=== PATIENT | male | born 1980 | race Caucasian/White ===

== ENCOUNTER 2016-10-29 13:25 | Emergency (ER) | payer SELFPAY ==
[2016-10-29 13:31] VITALS: BP 151/92; PULSE 120; RESP 16; TEMP 98.1; O2SAT 96
--- NOTE | 2016-10-29 13:32 | EDPHY ---
H & P Time Seen by Provider: 10/29/16 13:27 HPI/ROS: Chief complaint. High on meth HPI. 36-year-old male here by EMS and is "high on meth". He is a long-time meth user and admits to doing methamphetamine this morning. He denies headache , visual symptoms, chest discomfort, trouble breathing, abdominal pain. He has not been injured there is no fall or trauma. He has no pain or complaints. He denies suicidal ideation or homicidal ideation. ROS Constitutional. no fever/chills, no weakness Eyes. no problems with vision ENT. no sore throat, no nasal drainage Cardiovascular. no chest pain Respiratory. no shortness of breath, no cough Abdominal. no abdominal pain, no nausea/vomiting, no diarrhea . no problems urinating MS. no calf pain/swelling, no neck/back pain, no joint pain Skin. no rash Lymph. no swollen glands Neuro. no headache, no dizziness, no difficulty walking or with speech Past Medical/Surgical History: Past medical history significant only for substance abuse Social History: Single, daily smoker, no alcohol Smoking Status: Current every day smoker Physical Exam: General Appearance: Alert well-developed male no distress vital signs show a heart rate of 120 blood pressure 151/92 Eyes: Pupils equal and round no pallor or injection. ENT, Mouth: Mucous membranes are moist. Respiratory: There are no retractions, lungs are clear to auscultation. Cardiovascular: Regular rate and rhythm. Gastrointestinal: Abdomen is soft and nontender, no masses, bowel sounds normal. Neurological: Awake and alert, sensory and motor exams grossly normal. Skin: Warm and dry, no rashes. Musculoskeletal: Neck is supple nontender. Extremities symmetrical, full range of motion. Psychiatric: Patient is oriented X 3, there is no agitation. Constitutional: Initial Vital Signs Temperature (C) 36.7 C 10/29/16 13:29 Heart Rate 120 H 10/29/16 13:29 Respiratory Rate 16 10/29/16 13:29 Blood Pressure 151/92 H 10/29/16 13:29 O2 Sat (%) 96 10/29/16 13:29 O2 Delivery Mode Room Air Allergies/Adverse Reactions: No Known Allergies Allergy (Unverified 10/29/16 13:29) Home Medications: Medication Instructions Recorded NK [No Known Home Meds] 03/26/17 Medical Decision Making Procedures: Ativan by mouth, monitor ED Course/Re-evaluation: Patient declines Ativan and EKG. He stable. He wants to leave. There appears to be no medical or psychological issue to keep him here. He is not suicidal or homicidal. He has no chest discomfort trouble breathing or abdominal pain. No evidence of CVA. He admits to doing meth this morning Differential Diagnosis: I considered suicide and homicide ideation. I considered acute coronary syndrome. - Data Points Medications Given: Discontinued Medications Lorazepam (Ativan) 1 mg PO EDNOW ONE Stop: 10/29/16 13:41 Last Admin: 10/29/16 13:47 Dose: Not Given Departure - Departure Disposition: Home, Routine, Self-Care Clinical Impression: Methamphetamine abuse Condition: Good Instructions: Methamphetamine Abuse (ED) Additional Instructions: Return to the emergency department for thoughts of harming herself or others, chest discomfort, shortness of breath, abdominal pain, fever Follow up with [facility] for further evaluation and treatment of methamphetamine use Referrals: Patient,NotPresent [Primary Care Provider] - As per Instructions [facility] [Outside] - As per Instructions
[2016-10-29] MEDS: LORazepam 1 MG TAB PO ONE (13:47)
== END 2016-10-29 13:57 | disposition home or self-care (01) ==
LOC: EDUNIT#
DX: F15.10 Other stimulant abuse, uncomplicated (principal); F17.200 Nicotine dependence, unspecified, uncomplicated

== ENCOUNTER 2017-03-06 22:42 | Emergency (ER) | payer SELFPAY ==
[2017-03-06 22:49] VITALS: RESP 16
[2017-03-06 23:33] LABS: % IMMATURE GRANULYOCYTES 0.1 % (0.0-1.1); ABSOLUTE IMMATURE GRANULOCYTES 0.01 10^3/uL (0.00-0.10); ADD DIFF? NO; ADD MORPH? NO; ADD SCAN? NO; ATYPICAL LYMPHOCYTE FLAG 10 (0-99); FRAGMENT RBC FLAG 0 (0-99); HEMATOCRIT 43.3 % (40.0-51.0); HEMOGLOBIN 14.5 g/dL (13.7-17.5); LEFT SHIFT FLG 0 (0-99); LIPEMIA HEMOLYSIS FLAG 80 (0-99); MEAN CELL HEMOGLOBIN 29.8 pg (27.9-34.1); MEAN CELL HEMOGLOBIN CONCENTR. 33.5 g/dL (32.4-36.7); MEAN CELL VOLUME 89.1 fL (81.5-99.8); MEAN PLATELET VOLUME 9.1 fL (8.7-11.7); PLATELET CLUMPS FLAG 0 (0-99); PLATELET COUNT 291 10^3/uL (150-400); RED BLOOD CELL COUNT 4.86 10^6/uL (4.40-6.38); RED CELL DISTRIBUTION WIDTH 12.5 % (11.5-15.2)
[2017-03-06 23:43] LABS: ANION GAP 10 mEq/L (8-16); CALCIUM 9.2 mg/dL (8.5-10.4); CARBON DIOXIDE 27 mEq/l (22-31); CHLORIDE 101 mEq/L (97-110); CREATININE 0.9 mg/dL (0.7-1.3); ETHANOL SERUM < 10 mg/dL (0-10); GLOMERULAR FILTRATION RATE > 60; GLUCOSE 121 mg/dL (70-100); SODIUM 138 mEq/L (134-144)
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
[2017-03-07 08:06] VITALS: O2SAT 95
[2017-03-07 09:53] VITALS: BP 112/72; PULSE 68; TEMP 98.1
== END 2017-03-07 09:53 | disposition home or self-care (01) ==
DX: F25.9 Schizoaffective disorder, unspecified (principal); F19.10 Other psychoactive substance abuse, uncomplicated
CPT/HCPCS: 80305; G0480

== ENCOUNTER 2017-09-16 16:52 | Emergency (ER) | payer SELFPAY ==
[2017-09-16 16:59] VITALS: BP 125/70; PULSE 79; RESP 20; TEMP 98.1; O2SAT 96
--- NOTE | 2017-09-16 17:28 | EDPHY ---
H & P Time Seen by Provider: 09/16/17 17:04 HPI/ROS: CHIEF COMPLAINT: Right ear pain HISTORY OF PRESENT ILLNESS: 37-year-old male presents to the emergency department with pain in his right ear. Symptoms began yesterday. He has had some rhinorrhea and nasal congestion over the last day or so as well. No fevers or chills. No history of previous sinus infections. No known trauma. No fevers or chills. No treatment at home. Denies chest pain or difficulty breathing. Denies abdominal pain or vomiting. REVIEW OF SYSTEMS: Constitutional: No fever, no chills. Eyes: No double or blurry vision. ENT: Right ear pain as above. No sore throat. Respiratory: No cough, no shortness of breath. Cardiac: No chest pain. Gastrointestinal: No abdominal pain, vomiting or diarrhea. Genitourinary: No dysuria. Musculoskeletal: No neck or back pain. Skin: No rashes. Neurological: No headache. Past Medical/Surgical History: Bipolar, schizoaffective, right lung lobectomy Social History: Currently in work release program through the intermediate Smoking Status: Current every day smoker Physical Exam: General Appearance: Alert, no distress. Afebrile. Eyes: Pupils equal and round. Extraocular motions are all intact. ENT: Mouth: Mucous membranes moist. Tympanic membranes are pearly cantu and translucent bilaterally. No redness or bulging. No fluid. External auditory canals are clear bilaterally. No palpable pre or postauricular lymph nodes. Nontender to palpate over the mastoid bone bilaterally. Respiratory: No wheezing, rhonchi, or rales, lungs are clear to auscultation. Cardiovascular: Regular rate and rhythm. Gastrointestinal: Abdomen is soft and nontender, no masses, no rebound or guarding, bowel sounds normal. Neurological: Alert and oriented x 3, cranial nerves II through XII grossly intact Skin: Warm and dry, no rashes. Musculoskeletal: Nontender to palpate along the cervical, thoracic or lumbar spine. Neck is supple. No cervical lymphadenopathy. Extremities: Full range of motion and no peripheral edema. Psychiatric: Patient is oriented X 3, there is no agitation. Constitutional: Initial Vital Signs Temperature (C) 36.7 C 09/16/17 16:57 Heart Rate 79 09/16/17 16:57 Respiratory Rate 20 09/16/17 16:57 Blood Pressure 125/70 H 09/16/17 16:57 O2 Sat (%) 96 09/16/17 16:57 O2 Delivery Mode Room Air Allergies/Adverse Reactions: No Known Allergies Allergy (Verified 09/16/17 16:57) Home Medications: Medication Instructions Recorded NK [No Known Home Meds] 10/29/16 Medical Decision Making ED Course/Re-evaluation: 37-year-old male presents to the emergency department with right ear pain. Clinically this patient does not have otitis media. He likely has a viral upper respiratory infection. I encouraged him to use guaifenesin as well as Afrin nasal spray over the next 2-3 days. Also encouraged anti-inflammatories, ibuprofen, for pain relief. Differential Diagnosis: Including but not limited to otitis media, sinusitis, viral upper respiratory infection, bronchitis, pneumonia Departure - Departure Disposition: Home, Routine, Self-Care Clinical Impression: Viral upper respiratory infection Condition: Good Instructions: Upper Respiratory Infection (ED) Additional Instructions: Adult Pain & Fever Control: We recommend Acetaminophen (Tylenol) and Ibuprofen (Motrin,Advil) for pain and fever control. When fever is high or pain severe, both drugs can be used at the same time, but at different intervals. Please note the time differences. Your dose is: Acetaminophen 1000mg every 4 to 6 hours Ibuprofen 600mg every 8 hours with food Note: do not take Acetaminophen with Hydrocodone (Vicodin, Lortab) or Oycodone (Percocet). These medications also contain Acetaminophen. No more than 3000mg of Acetaminophen should be taken in 24 hours (for an adult). Mucinex, guaifenesin, to help relieve congestion. Afrin nasal spray for 2 days as needed to help relieve congestion. Return to the emergency department if you develop a fever, increasing pain, or any other concerns. Referrals: Cammy Arnold MD [Medical Doctor] - 2-3 days, if not improved (Primary care provider store product demonstrator)
== END 2017-09-16 17:41 | disposition home or self-care (01) ==
DX: J06.9 Acute upper respiratory infection, unspecified (principal); F17.200 Nicotine dependence, unspecified, uncomplicated

== ENCOUNTER 2017-10-18 18:41 | Emergency (ER) | payer SELFPAY ==
[2017-10-18 18:49] VITALS: BP 146/75; PULSE 74; RESP 16; TEMP 97.9; O2SAT 94
--- NOTE | 2017-10-18 19:25 | EDPHY ---
H & P Stated Complaint: cough, fever, congestion Time Seen by Provider: 10/18/17 19:25 - Personal History Current Tetanus/Diphtheria Vaccine: Yes Current Tetanus Diphtheria and Acellular Pertussis (TDAP): Yes Tetanus Vaccine Date: 2015 - Medical/Surgical History Hx Asthma: No Hx Chronic Respiratory Disease: No Hx Diabetes: No Hx Cardiac Disease: No Hx Renal Disease: No Hx Cirrhosis: No Hx Alcoholism: No Hx HIV/AIDS: No Hx Splenectomy or Spleen Trauma: No Other PMH: right lung lobeectomy- bleph's, bipolar/ schizoeffective - Social History Smoking Status: Current every day smoker Constitutional: Initial Vital Signs Temperature (C) 36.6 C 10/18/17 18:47 Heart Rate 74 10/18/17 18:47 Respiratory Rate 16 10/18/17 18:47 Blood Pressure 146/75 H 10/18/17 18:47 O2 Sat (%) 94 10/18/17 18:47 O2 Delivery Mode Room Air Allergies/Adverse Reactions: No Known Allergies Allergy (Verified 10/18/17 18:47) Home Medications: Medication Instructions Recorded Azithromycin [Zithromax] 250 mg PO DAILY #6 tab 10/18/17 Medical Decision Making ED Course/Re-evaluation: CHIEF COMPLAINT: Cough, congestion, sore throat for several days HISTORY OF PRESENT ILLNESS: 37-year-old male whose had fever cough congestion and sore throat for several days. He says not getting better. He also has a little bit of right ear pain. He is currently residing at night in the senior living and allowed out during the day. REVIEW OF SYSTEMS: A 10 point review of systems was performed and is negative with the exception of the elements mentioned in the history of present illness. PHYSICAL EXAM: HR, BP, O2 Sat, RR. Temp noted General Appearance: Alert, well hydrated, appropriate, and non-toxic appearing. Head: Atraumatic without scalp tenderness or obvious injury Eyes: Pupils equal, round, reactive to light and accommodation, EOMI, no trauma , no injection. Ears: Mild erythema right TM, left normal, no perforation Nose: Atraumatic, no rhinorrhea, clear. Throat: There is erythema and mild exudates, no lesions, normal tonsils, mucus membranes moist. Neck: Supple, 2+ carotid upstroke, nontender, no lymphadenopathy. Respiratory: No retractions, no distress, no wheezes, and no accessory muscle use. Coarse rhonchi throughout Cardiovascular: Regular rate and rhythm, no murmurs, rubs, or gallops. Bilateral carotid, radial, dorsalis pedis, and posterior tibial pulses intact. Good capillary refill all extremities. Gastrointestinal: Abdomen is soft, nontender, non-distended, no masses, no rebound, no guarding, no peritoneal signs. Musculoskeletal: Normal active ROM of all extremities, atraumatic. Neurological: Alert, appropriate, and interactive. The patient has normal DTRs and non-focal cranial nerves, motor, sensory, and cerebellar exam. Skin: No rashes, good turgor, no nodules on palpation. Past medical history: Denies Past surgical history: Denies Family history: Noncontributory Social history: Single, lives at the senior living at night and works during the day, denies tobacco drug or alcohol abuse DIFFERENTIAL DIAGNOSIS: Includes but is not limited to: URI, otitis media, otitis externa, pharyngitis, bronchitis MEDICAL DECISION MAKING: This patient has an erythematous throat with some exudate and mildly erythematous right tympanic membrane. Consequently I will give him a Z-Bassem, Mucinex, Flonase. Departure - Departure Disposition: Home, Routine, Self-Care Clinical Impression: Bronchitis Otitis media Qualifiers: Otitis media type: mucoid Chronicity: acute Laterality: right Qualified Code(s) : H65.111 - Acute and subacute allergic otitis media (mucoid) (sanguinous) ( serous), right ear Condition: Good Instructions: Ear Infection (ED), Acute Bronchitis (ED) Additional Instructions: This patient is being discharged from the emergency department at 7:45 p.m.. He needs to stop at the pharmacy to warp picker his prescriptions before returning to senior living. Referrals: NONE *PRIMARY CARE P,. [Primary Care Provider] - As per Instructions Prescriptions: Azithromycin [Zithromax] 250 mg PO DAILY #6 tab
== END 2017-10-18 19:48 | disposition home or self-care (01) ==
DX: J20.9 Acute bronchitis, unspecified (principal); H65.111 Acute and subacute allergic otitis media (mucoid) (sanguinous) (serous), right ear; F17.200 Nicotine dependence, unspecified, uncomplicated